=== PATIENT | female | born 1990 | race Caucasian/White ===

== ENCOUNTER → 2020-11-16 09:42 | Outpatient (CLI) | payer SELFPAY ==
[2020-11-18 20:33] LABS: HPV Reflexed? NOT INDICATED
== END ==
PROVIDERS: Visit Provider Obstetrics & Gynecology
DX: Z12.4 Encounter for screening for malignant neoplasm of cervix (principal)
CPT/HCPCS: 88175; G0145

== ENCOUNTER → 2021-03-13 16:13 | Outpatient (CLI) | payer OTHER, SELFPAY ==
[2021-03-13 17:20] LABS: Hematocrit 43.3 % (37-47); Hemoglobin 14.3 g/dL (12.0-15.0); Mean Corpuscular Hgb 30.4 pg (27.0-32.0); Mean Corpuscular Volume 92.1 fL (81-99); Mean Platelet Vol. 10.4 fl (6.2-12.0); Platelet Count 258 K/mm3 (150-450); RBC Distribution Width CV 12.2 % (11.6-14.6); RBC Distribution Width SD 41.9 fl (35.1-43.9); White Blood Count 8.6 K/mm3 (4.4-11.0)
[2021-03-13 17:49] LABS: hCG Titer Quant., Serum 634 mIU/mL (1-3)
== END ==
PROVIDERS: Visit Provider Obstetrics & Gynecology
DX: N93.9 Abnormal uterine and vaginal bleeding, unspecified (principal)
CPT/HCPCS: 36415; 84702; 85027; 86900; 86901

== ENCOUNTER 2021-03-15 12:04 | Day surgery (SDC) | payer SELFPAY, OTHER ==
[2021-03-15] VITALS (10 sets, daily range): BP systolic 89–109; BP diastolic 48–63; PULSE 58–83; RESP 16; TEMP 36.1–36.9; O2SAT 95–100; BMI 24.2
--- NOTE | 2021-03-15 | FLU_PTH ---
PATIENT: MARIA FERNANDA EDWARDS LOC: [facility] [place] U#:[id number] AGE/SX: 31/F ROOM: RE03/15/[address]: Dr. Phuc Casillas MD : 1990 BED: DIS: 03/15/2021 SPEC #: [id number] RECD: 03/16/21 09:32 STATUS: AILEEN JAMES #: [id number] LAMONT: 03/15/21 00:[address]: Phuc Casillas DEPT: CYTOLOGY RECD BY: Hitesh Goyal ENTERED: 03/16/21 09:32 SP TYPE: Fluid OTHR DR: No Primary Care Phys Tissues: Pelvis, NOS Procedures: Special Stain Group II Surgery Specimen Level IV Cytospin Fluid HEADER OPERATION: Suction dilation and curettage, diagnostic laparoscopy, right salpingectomy PRE-OP DIAGNOSIS: Ectopic with intrauterine TISSUE SUBMITTED: Pelvic washings ? suspected products of conception DIAGNOSIS CYTOLOGY Pelvic washings (cytospin and cell block): Negative for malignant cells. Rare chorionic villi present. AM:juliette 03/17/2021 COMMENT See corresponding surgical case ([id number]) in which intratubal products of conception were identified. Case has been reviewed in consultation with Dr. Arciniega who concurs with the above diagnosis. IDC:SJ CYTOLOGY STUDY Slides are reviewed. CYTOLOGY GROSS Received is 15 ml of dark red bloody fluid labeled with the patient's name and and designated per the requisition as pelvic washings. Submitted for cytology preparation including cell block. / juliette 03/16/2021 TC:5 CPT: 95603, 64162
--- NOTE | 2021-03-15 | POC_PTH ---
PATIENT: MARIA FERNANDA EDWARDS LOC: [facility] [place] U#:[id number] AGE/SX: 31/F ROOM: RE03/15/[address]: Dr. Phuc Casillas MD : 1990 BED: DIS: 03/15/2021 SPEC #: [id number] RECD: 03/16/21 11:43 STATUS: AILEEN REMakayla #: [id number] LAMONT: 03/15/21 00:[address]: Phuc Casillas DEPT: SURGICAL PATHOLOGY RECD BY: Hitesh Goyal ENTERED: 03/16/21 11:44 SP TYPE: PROD CONC OTHR DR: No Primary Care Phys Tissues: A - Product of conception, NOS B - Fallopian tube C - Fallopian tube Procedures: Surgery Specimen Level IV HEADER OPERATION: Suction dilation and curettage, diagnostic laparoscopy PRE-OP DIAGNOSIS: Ectopic with intrauterine TISSUE SUBMITTED: A ? Uterine products of conception, B ? Left fallopian tube contents - suspected products of conception, C ? Right fallopian tube MICROSCOPIC DIAGNOSIS A. Endometrium, curettings: Weakly proliferative endometrium with focal glandular breakdown. Mild chronic endometritis. Fragments of benign endocervix. See comment. B. Left fallopian tube contents, removal: Chorionic villi consistent with intratubal . C. Right fallopian tube, salpingectomy: Consistent with hemosalpinx. AM:juliette 03/17/2021 COMMENT A. Chorionic villi, decidualized stroma and/or trophoblastic cells are not identified. Clinical correlation is suggested. Case has been reviewed in consultation with Dr. Arciniega who concurs with the above diagnosis. IDC:IKE MICROSCOPIC DESCRIPTION Slides are reviewed. GROSS DESCRIPTION A - Received in fixative is one container labeled with the patient's name and designated uterine products of conception. The specimen consists of multiple fragments of henry hemorrhagic soft tissue that in aggregate measure 2.5 x 1.5 x 0.1 cm. No tissue is identified. The specimen is totally submitted in one cassette. B - Received in fixative is one container labeled with the patient's name and designated left fallopian tube contents - suspected products of conception. The specimen consists of multiple fragments of hemorrhagic soft tissue that in aggregate measure 2 x 1.6 x 0.2 cm. No tissue is identified. The specimen is totally submitted in one cassette. C - Received in fixative is one container labeled with the patient's name and designated right fallopian tube. The specimen consists of a tubular segment of henry, congested soft tissue measuring 1.8 cm in length and 0.6 cm in diameter. The specimen is serially sectioned and the lumen is filled with hemorrhagic material. No tissue is identified. The entire specimen is submitted in one cassette. / SJ:rg 03/16/21 TC:3 CPT: 23439 x3
[2021-03-15 12:54] LABS: Hemoglobin 14.7 g/dL (12.0-15.0); Mean Corp Hgb Conc 34.2 g/dL (32-36); Mean Corpuscular Hgb 30.7 pg (27.0-32.0); Mean Corpuscular Volume 89.8 fL (81-99); Platelet Count 238 K/mm3 (150-450); RBC Distribution Width SD 39.7 fl (35.1-43.9); Red Blood Count 4.79 M/mm3 (4.2-5.4); White Blood Count 7.4 K/mm3 (4.4-11.0)
[2021-03-15] MEDS: Lactated Ringers 1,000 ML 100 ML IV ×2 (12:59→16:00)
--- NOTE | 2021-03-15 13:36 | PCM.HP.BLA ---
History and Physical Date of Admission: 03/15/21 Surgical History and Physical Date: 03/15/2021 Name: MARIA FERNANDA PEARL Age: 31 Date of : 1990 Maria Fernanda Pearl, a 31 year old female 0 0 1 0 0, presents for Suction dilation curettage, diagnostic laparoscopy, possible removal of ectopic on March 15, 2021 at 2 :00. Maria Fernanda is here for First . Was in ER in [facility] with heavy bleeding and passing clots. Quant levels were drawn. Bleeding did slow down and taper off but as of last few days has become heavy again. Uncertain if this is her normal cycle. No c/o cramping. Office UPT +. MEDICATIONS HISTORY: Patient is also takin. No Meds ALLERGIES: No Known Drug Allergies Infections - Chicken pox childhood Illnesses - no serious past illnesses Hospitalizations - see surgery Review of Systems: GENERAL - Denies fever, or chills SKIN - Denies skin changes EYES - Denies visual changes EARS - Denies difficulty hearing NOSE - Denies nasal congestion or bleeding MOUTH - Denies sore throat or difficulty swallowing NECK - Denies pain or swelling RESPIRATORY - Denies shortness of breath or wheezing CARDIOVASCULAR - Denies palpitations or chest pain GASTROINTESTINAL - Denies nausea, vomiting, diarrhea, constipation GENITOURINARY - Denies dysuria, frequency of urination, incontinence of urine MUSCULOSKELETAL - Denies joint or muscle pain NEUROLOGICAL - Denies localized numbness or weakness PSYCHIATRIC - Denies depression or anxiety ENDOCRINE - Denies heat or cold intolerance, weight loss or gain HEMATO-IMMUNOLOGIC - Denies excesive bleeding with cuts SOCIAL HISTORY: Alcohol Use - denies drinking Smoking - denies smoking Diet - balanced Diet Exercise - active Employer - Unemployed Job Description - Housewife Illicit Drug Use - denies use of street drugs Spouse-Sig Other Name - [place] Spouse-Sig Other Occupation - Housekeeping Room Attendant Control - None-attempting pregancy FAMILY HISTORY: MENSTRUAL HISTORY: LMP Known?- Yes, LMP - 10/28/20 PAST PREGNANCIES: Total Pregnancies - 1; Full Term Pregnancies - 0; Premature - 0; Abortions, Induced - 0; Abortions, Spontaneous - 1; Ectopics - 0; Multiple Births - 0; Living Children - 0 SURGICAL HISTORY: 1. Rt partial salpingectomy, cyst removal from Rt Fallopian tube ; - PHYSICAL EXAM BP- 114/66 Sitting, Right arm, regular cuff Weight- 167.13645 lbs Height- 64 inch BMI:[id number] CONSTITUTIONAL - NAD, well nourished, and well developed SKIN - No rash, lesions, or ulcers HEENT - Normocephalic, PERRLA, EOMI NECK - No nodes, no nuchal rigidity and thyroid normal size and texture LYMPH NODES - Palpation of lymph nodes in neck and groins within normal limits ABDOMEN - Without hepatosplenomegaly, distention, masses, rebound, or guarding; normal bowel sounds; no hernias EXTREMITIES - No edema or calf tenderness NEUROLOGICAL - Cranial nerves II-XII grossly intact PSYCHIATRIC - A and O to time, place, person, mood and affect External Genitial Vagina - non-tender without lesions Urethra/Urethral Meatus - non-tender Bladder - non-tender Vagina - vaginal boo are pink and moist without loss of rugae and no evidence of atropy and small amount of blood in posterior cul de sac Cervix - without cervical motion tenderness and has normal size and features without evident lesions Uterus - 5-6 cm in size, mobile and nontender Adnexa - clear without massess or tenderness ASSESSMENT/PLAN: 1. Unspecified Ectopic With Intrauterine Patient began the month of February with positive test. Had bleeding. from letrozole. Went to hCG 02/21 319 02/23 329 03/03 226 then at [facility] hcg >600 Patient previously with resolved vaginal bleeding. Patient is otherwise asymptomatic, no pelvic pain Patient status post partial right salpingectomy U/s with no IUP or masses. Based on inappropriately rising Hcg, suspicion for ectopic . For suction D&C, dx laparoscopy, possible removal of ectopic .
--- NOTE | 2021-03-15 15:08 | SUR.PREOP ---
after discussion with pt and dr apple, demise paperwork not filled out b/c pt had miscarraige at home days ago and than started bleeding again so he feels not necessary.
--- NOTE | 2021-03-15 17:14 | PCM.DC ---
Discharge Instructions Diet Discharge Diet: No restrictions Activity Discharge Activity: Return to Normal Activity, May Drive and May Shower May resume sexual activity in: 4-6 weeks Lifting Restrictions: No lifting over 25 pounds for 2 to 3 weeks Dressing / Incision Call your doctor if your incision/area has: Continuous Slow Oozing and Foul Smelling Discharge Call your doctor if you observe: Fever of 101 or Higher, Shortness of breath and Chest pain Follow Up Care Please Follow Up With: Phuc Casillas MD When: Follow-up 2 weeks postoperatively Test Results: Test results from this visit will be discussed in further detail at your follow-up appointment, if applicable. Discharge Plan Admission Attending Provider: Phuc Casillas Primary Care Provider: Care Physician,Viry Primary Discharge Orders/Prescriptions Prescriptions: No Action NK RF: 0 Disposition Discharge Orders: Discharge Patient (Routine); Ordered 03/15/21 Ordered By: Dr. Phuc Casillas
--- NOTE | 2021-03-15 17:15 | PCM.OPRPT ---
Report of Operation Date of Procedure: 03/15/21 Pre-Operative Diagnosis: of unknown location Post-Operative Diagnosis: Suspected left fallopian tube ectopic Surgery/Procedure Performed:: Suction dilation curettage. Diagnostic laparoscopy. Left salpingostomy. Right salpingectomy Description of Surgical Findings:: Surgeon: Phuc Casillas MD Anesthesia: General EBL: 50 cc Urine output: 400 cc IV fluids: 1000 cc Complications: None Specimen: Endometrial curettings, left fallopian tube contents suspected products of conception, pelvic washing suspect products conception, right fallopian tube Findings: Cervix dilated to approximately 1-2 centimeters. Minimal amounts of tissue obtained via endometrial curettage. Diagnostic laparoscopy revealed small to mild amount of blood in posterior cul-de-sac. Right fallopian tube with 1 to 2 cm of fallopian tube no fimbria and was occluded at its end, no signs of swelling or ectopic . Right fallopian tube removed being nonviable as discussed preoperatively with patient. Left fallopian tube with swelling and erythema signs of ectopic , when salpingectomy performed what appears to be products of conception removed and sent to pathology. Pelvic washings were performed and sent to pathology. Bilateral fallopian tubes within normal limits. Normal uterus. Cervix normal in appearance. No other pathology noted. Consent: Patient with positive test and inappropriately rising hCG levels along with vaginal bleeding, suspicious for ectopic . Patient for suction dilation curettage, diagnostic laparoscopy, and removal of ectopic . Patient understands the risk of the procedure include but are not limited to visceral or vascular injury, prolonged hospitalization, blood loss need for transfusion, reoperation. Discussed prior surgery of open laparotomy for removal of right ovarian cyst that included partial salpingectomy, patient requested that if right fallopian tube was nonviable to be removed to avoid future ectopic pregnancies. Discussed preoperatively possibility of ovarian and left fallopian tube ectopic pregnancies, patient agreed for removal of ectopic pregnancies even if this meant removal of left fallopian tube or ovary. Patient understands risk for future fertility. Patient states understanding wish to proceed. All questions were answered consent was signed. Procedure: Patient brought back to the OR where general anesthesia found to be adequate. 200 mg of doxycycline IV were given for infection prophylaxis. Patient was prepared and draped in a dorsolithotomy position with yellowfin stirrups. Weighted speculum was placed in posterior aspect of the Vagina and cervical dilators were used to dilate the cervix. Suction curettage was performed with 7 mm curved suction curette, above findings were noted. Tissue sent to pathology. Good hemostasis was noted. Varies needle was inserted at the umbilicus, water safety test was passed, abdomen was insufflated. Supraumbilical midline incision made, 5 mm trocar was placed under direct visualization. Laparoscope was inserted above findings were noted. Left lower quadrant 5 mm trocar was inserted under direct visualization. 8 mm trocar was placed under direct visualization in the right lower quadrant. Using an atraumatic grasper and the LigaSure L-hook salpingostomy of the left fallopian tube was performed and removal of suspicious products of conception from the fallopian tube performed and sent to pathology. Good hemostasis noted. Pelvis was irrigated with suction construction or leak gang laborer and sent to pathology. Right fallopian tube with above findings, using atraumatic grasper and a LigaSure device the flip tube was elevated and the mesosalpinx was cut and cauterized, right fallopian tube was removed from the abdominal cavity and sent to pathology. Good hemostasis was noted. Abdomen was desufflated. Trochars removed under direct visualization, good hemostasis was noted. Laparoscopic incisions were closed in a subcutaneous fashion. All counts correct x2. Patient tolerated procedure well and was brought to recovery in a stable condition. glass glazier: Valarie Branham
== END 2021-03-15 19:43 | disposition home or self-care (01) ==
LOC: SDC 12:08 → AC 12:09
PROVIDERS: Referring Provider Obstetrics & Gynecology; Visit Provider Obstetrics & Gynecology
PROC: (CPT 58673; principal; 2021-03-15 13:45)
DX: O00.102 Left tubal pregnancy without intrauterine pregnancy (principal)
CPT/HCPCS: 58673; 59151; 85027; 86850; 86900; 86901; 87426; 88108; 88302; 88305; 88313; J7120; J2405

== ENCOUNTER → 2022-04-05 | Outpatient (CLI) | payer OTHER, SELFPAY ==
[2022-04-05 17:40] LABS: Absolute Lymphocyte Count 1.46 X10^3/uL (0.83-4.51); Absolute Neutrophil Count 9.4 X10^3/uL (2.0-7.7); Basophil# 0.03 X10^3/uL; Basophil% 0.3 % (0-1); Eosinophil# 0.05 X10^3/uL; Eosinophils% 0.4 % (0-5); Hematocrit 45.8 % (37-47); Hemoglobin 15.4 g/dL (12.0-15.0); Lymphocyte # 1.46 X10^3/ul (0.83-4.51); Lymphocyte % 12.5 % (19-41); Mean Corp Hgb Conc 33.6 g/dL (32-36); Mean Corpuscular Hgb 30.4 pg (27.0-32.0); Mean Corpuscular Volume 90.5 fL (81-99); Mean Platelet Vol. 10.5 fl (6.2-12.0); Monocyte# 0.68 X10^3/uL; Monocyte% 5.8 % (0-10); NRBC Flagged by Analyzer 0 % (0-5); Neutrophil # 9.41 X10^3/uL (2.7-7.7); Neutrophil % 80.6 % (47-70); Platelet Count 273 K/mm3 (150-450); RBC Distribution Width CV 12.4 % (11.6-14.6); RBC Distribution Width SD 40.9 fl (35.1-43.9); Red Blood Count 5.06 M/mm3 (4.2-5.4); White Blood Count 11.7 K/mm3 (4.4-11.0)
[2022-04-05 19:08] LABS: HIV - WCH Non-Reactive (Nonreactive); Hepatitis B Surface Antigen Non-Reactive (Nonreactive); Hepatitis C Antibody Non-Reactive (Nonreactive); Rubella IgG Reactive (Nonreactive); Syphilis Antibodies Non-reactive
[2022-04-09 07:06] LABS: Chlamydia By Nucleic Acid AMP Negative (Negative); Gonococcus By Nucleic Acid AMP Negative (Negative)
[2022-04-09 10:21] LABS: V-Zoster IgG (Immunity) 320 index (Immune >165)
== END | disposition home or self-care (01) ==
LOC: WOBLAB 16:43
PROVIDERS: Visit Provider Obstetrics & Gynecology
DX: Z36.85 Encounter for antenatal screening for Streptococcus B (principal); Z11.3 Encounter for screening for infections with a predominantly sexual mode of transmission
CPT/HCPCS: 36415; 85025; 86703; 86762; 86780; 86787; 86803; 86850; 86900; 86901; 87086; 87088; 87340; 87491; 87591